=== PATIENT | male | born 1970 | race Caucasian/White ===

== ENCOUNTER 2019-09-02 13:46 | Emergency (ER) | payer OTHER ==
--- NOTE | 2019-09-02 14:27 | EDM.PDOC ---
ED HPI GENERAL MEDICAL PROBLEM - General Chief Complaint: General Stated Complaint: EMS ARRIVAL Time Seen by Provider: 09/02/19 14:27 Source of Information: Reports: Patient History Limitations: Reports: No Limitations - History of Present Illness INITIAL COMMENTS - FREE TEXT/NARRATIVE: This 49 year old female is admitted to the ED with a chief complaint of breaking out with itching shortly after taking Levaquin for a urinary tract infection. He complains of generalized raised red lesions over his entire body. He complains of slight tightness in his throat. He denies any SOB or chest pain. He denies any other symptoms at that time. Onset: Today Location: Reports: Head, Face, Neck, Chest, Abdomen, Back, Upper Extremity, Left , Upper Extremity, Right, Lower Extremity, Left, Lower Extremity, Right Severity: Moderate (itching) Improves with: Reports: None Worsens with: Reports: None lungs Pain Score (Numeric/FACES): 6 - Related Data Allergies Allergy/AdvReac Type Severity Reaction Status Date / Time Penicillins Allergy Hives Verified 09/02/19 13:52 Home Meds: Home Meds ARIPiprazole [Abilify] 5 mg PO DAILY 09/02/19 [History] diphenhydrAMINE HCl [Benadryl] 25 mg PO TID PRN 5 Days #15 capsule 09/02/19 [Rx] traZODone HCl [Trazodone HCl] 150 mg PO BEDTIME 09/02/19 [History] Past Medical History Psychiatric History: Reports: Anxiety, Depression - Past Surgical History Musculoskeletal Surgical History: Reports: Other (See Below) Other Musculoskeletal Surgeries/Procedures:: Right Hand- Pins Social & Family History - Family History Family Medical History: Noncontributory - Tobacco Use Smoking Status *Q: Current Every Day Smoker Years of Tobacco use: 20 Packs/Tins Daily: 1.5 - Recreational Drug Use Recreational Drug Use: No ED ROS GENERAL - Review of Systems Review Of Systems: See Below Constitutional: Reports: No Symptoms HEENT: Reports: No Symptoms Respiratory: Reports: No Symptoms Cardiovascular: Reports: No Symptoms Endocrine: Reports: No Symptoms GI/Abdominal: Reports: No Symptoms : Reports: No Symptoms Musculoskeletal: Reports: No Symptoms Skin: Reports: Pruritis, Lesions Neurological: Reports: No Symptoms ED EXAM, GENERAL - Physical Exam Exam: See Below Exam Limited By: No Limitations General Appearance: Alert, WD/WN, No Apparent Distress Ears: Normal External Exam, Normal Canal, Hearing Grossly Normal, Normal TMs Ear Exam: Bilateral Ear: Auricle Normal, Canal Normal, TM normal Nose: Normal Inspection, Normal Mucosa, No Blood Throat/Mouth: Normal Inspection, Normal Lips, Normal Teeth, Normal Gums, Normal Oropharynx, Normal Voice, No Airway Compromise Head: Atraumatic, Normocephalic Neck: Normal Inspection, Supple, Non-Tender, Full Range of Motion Respiratory/Chest: No Respiratory Distress, Lungs Clear, Normal Breath Sounds, No Accessory Muscle Use, Chest Non-Tender, Other (genralized raised red lesions noted) Cardiovascular: Normal Peripheral Pulses, Regular Rate, Rhythm, No Edema, No JVD , No Murmur Peripheral Pulses: 3+: Carotid (L), Carotid (R), Radial (L), Radial (R), Dorsalis Pedis (L), Dorsalis Pedis (R) GI/Abdominal: Normal Bowel Sounds, Soft, Non-Tender, No Organomegaly, No Distention, No Abnormal Bruit, No Mass, Other (generalized rash noted as above) (Male) Exam: Deferred Rectal (Males) Exam: Deferred Extremities: Normal Range of Motion, Normal Capillary Refill, Other ( generalized rash noted over all extremities) Neurological: Alert, Oriented, CN II-XII Intact, Normal Reflexes, No Motor/ Sensory Deficits Psychiatric: Normal Affect, Normal Mood Skin Exam: Erythema (raised generalized rash is noted over the entire body) Lymphatic: No Adenopathy Course - Vital Signs Text/Narrative:: The patient is much better. No itching at this time. Rash is almost completely gone from all sites. He is cleared to return [facility]. Last Recorded V/S: Last Vital Signs Temp 98 F 09/02/19 13:48 Pulse 89 09/02/19 15:50 Resp 20 09/02/19 15:50 BP 165/81 H 09/02/19 15:50 Pulse Ox 100 09/02/19 15:50 - Orders/Labs/Meds Orders: Active Orders 24 hr Category Date Time Status EKG Documentation Completion [RC] STAT Care 09/02/19 14:13 Active Meds: Medications Discontinued Medications Generic Name Dose Route Start Last Admin Trade Name Freq PRN Reason Stop Dose Admin Diphenhydramine HCl 25 mg 09/02/19 14:34 09/02/19 14:45 Benadryl IM 09/02/19 14:35 Not Given ONETIME ONE Diphenhydramine HCl 25 mg 09/02/19 14:46 09/02/19 15:08 Benadryl IVPUSH 09/02/19 14:47 25 mg ONETIME ONE Administration Famotidine 20 mg 09/02/19 14:34 09/02/19 15:08 Pepcid IVPUSH 09/02/19 14:35 20 mg ONETIME ONE Administration Sodium Chloride 1,000 mls @ 1,000 mls/hr 09/02/19 14:35 09/02/19 15:07 Normal Saline IV 09/02/19 15:34 1,000 mls/hr .Bolus ONE Administration Methylprednisolone Sodium Succinate 125 mg 09/02/19 14:35 09/02/19 15:08 Solu-Medrol IV 09/02/19 14:36 125 mg ONETIME ONE Administration Departure - Departure Time of Disposition: 16:08 Disposition: Home, Self-Care 01 Condition: Good Clinical Impression: Allergic drug rash - Discharge Information *PRESCRIPTION DRUG MONITORING PROGRAM REVIEWED*: Yes *COPY OF PRESCRIPTION DRUG MONITORING REPORT IN PATIENT LYNETTE: Yes Forms: ED Department Discharge Additional Instructions: Take all medications as directed. Follow up with your PCP in the next two to four days. Rest for the next 24 hours. Stop taking Levaquin. Return to the ED if your condition gets worse or should you have any questions or concerns. The following information is given to patients seen in the emergency department who are being discharged to home. This information is to outline your options for follow-up care. We provide all patients seen in our emergency department with a follow-up referral. The need for follow-up, as well as the timing and circumstances, are variable depending upon the specifics of your emergency department visit. If you don't have a primary care physician on staff, we will provide you with a referral. We always advise you to contact your personal physician following an emergency department visit to inform them of the circumstance of the visit and for follow-up with them and/or the need for any referrals to a consulting specialist. The emergency department will also refer you to a specialist when appropriate. This referral assures that you have the opportunity for follow-up care with a specialist. All of these measure are taken in an effort to provide you with optimal care, which includes your follow-up. Under all circumstances we always encourage you to contact your private physician who remains a resource for coordinating your care. When calling for follow-up care, please make the office aware that this follow-up is from your recent emergency room visit. If for any reason you are refused follow-up, please contact the [facility] Emergency Department at and asked to speak to the emergency department charge nurse. Sepsis Event Note - Evaluation Sepsis Screening Result: No Definite Risk - Focused Exam Vital Signs: Vital Signs Temp Pulse Resp BP Pulse Ox 09/02/19 15:50 89 20 165/81 H 100 09/02/19 13:48 98 F 92 18 134/87 99 Date Exam was Performed: 09/02/19 Time Exam was Performed: 16:07
[2019-09-02] MEDS ORDERED: diphenhydrAMINE 50 MG/ML SDV IM ONE (14:34)
[2019-09-02] MEDS ORDERED: Famotidine 20 MG/2 ML SDV IVPUSH ONE (14:34)
[2019-09-02] MEDS ORDERED: methylPREDNISolone Sodium Succinate 125 MG/2 ML SDV IV ONE (14:35)
[2019-09-02] MEDS ORDERED: Sodium Chloride 0.9% 1,000 ML IV ONE (14:35)
[2019-09-02] MEDS ORDERED: diphenhydrAMINE 50 MG/ML SDV IVPUSH ONE (14:46)
== END 2019-09-02 16:41 | disposition home or self-care (01) ==
LOC: MW.ED 13:46
DX: R21 Rash and other nonspecific skin eruption (principal); T36.8X5A Adverse effect of other systemic antibiotics, initial encounter; F41.9 Anxiety disorder, unspecified; F32.9 Major depressive disorder, single episode, unspecified; F17.210 Nicotine dependence, cigarettes, uncomplicated; Z88.0 Allergy status to penicillin; Z79.899 Other long term (current) drug therapy
CPT/HCPCS: 93005; 96361; 96374; 96375; 99283; J1200; J2930; J7030; S0028; J3490